=== PATIENT | male | born 1975 | race Caucasian/White ===

== ENCOUNTER 2022-02-28 18:20 | Day surgery (SDC) | payer MEDICAID, SELFPAY ==
--- NOTE | ~2022-02-28 | CT_ITS ---
EXAMINATION: CT ABDOMEN AND PELVIS WITH CONTRAST CLINICAL INFORMATION: Right lower quadrant pain. Concern for appendicitis COMPARISON: None TECHNIQUE: Multidetector volumetric images were obtained from the superior aspect of the liver through the pubic symphysis following administration 85 mL of Omnipaque 350 intravenous contrast. Sagittal and coronal reformatted images were obtained on the technologist's workstation. Oral contrast: No This CT examination was performed using dose optimization techniques as appropriate, variously including the following: *Automated exposure control *Adjustment of mA and/or kV according to patient size (this includes techniques or standardized protocols for targeted exams where dose is matched to indication/reason for exam; i.e. extremities or head) *Use of iterative reconstruction technique DLP: 597 mGy-cm FINDINGS: LUNG BASES: The visualized lung bases are unremarkable. LIVER, GALLBLADDER, AND BILIARY TREE: The liver is normal in size, shape, and attenuation. No focal hepatic lesion or biliary ductal dilatation is present. The gallbladder is unremarkable with no evidence of radiopaque gallstones, gallbladder wall thickening, or obvious pericholecystic inflammatory changes. PANCREAS: Unremarkable. SPLEEN: Unremarkable. ADRENAL GLANDS: Unremarkable. KIDNEYS AND URETERS: Symmetric nephrograms. No renal calculi or hydronephrosis. Couple small subcentimeter hypodense left renal lesions, likely tiny cysts, too small to characterize. No perinephric collection or stranding. BLADDER: Unremarkable. GASTROINTESTINAL TRACT: The appendix is dilated measuring up to 0.8 cm in maximal diameter with surrounding inflammatory fat stranding. Adjacent small 0.7 cm short axis dimension reactive lymph node on series 3-53. Appearance is consistent with acute appendicitis. No extraluminal gas or periappendiceal abscess. No additional bowel wall thickening. No dilated bowel loops. No ascites or free air. ABDOMINAL WALL: No significant hernia is appreciated. LYMPH NODES: No lymphadenopathy. VASCULAR: Normal caliber abdominal aorta. PELVIC VISCERA: Unremarkable. OSSEOUS STRUCTURES: Unremarkable. CT/CT abdomen pelvis w IV con IMPRESSION: 1. Findings consistent with acute appendicitis. No evidence of perforation or abscess. This critical result was discussed with NICOLÁS Sampson at 7:45 PM on 02/28/2022 and it was ascertained that the content and urgency of the report was understood at the time of direct communication.
[2022-02-28 14:49] VITALS: BP 110/66; PULSE 76; RESP 18; TEMP 36.5; O2SAT 97; BMI 30.8
[2022-02-28 15:00] LABS: MANUAL DIFF FLAG NO
[2022-02-28 15:03] LABS: Basophils Percent Auto 0.2 % (0-2); Hematocrit 43.4 % (42.0-52.0); Hemoglobin 15.1 g/dl (14.0-18.0); Imm Gran Abs Auto 0.11 X10*3/uL (0.00-0.03); Imm Gran Pct Auto 0.5 % (0.0-0.4); Lymphocytes Absolute Auto 1.4 X10*3/uL (1.2-4.9); Lymphocytes Percent Auto 6.2 % (20-40); Mean Corpuscular HGB Conc 34.8 g/dl (31.0-36.0); Mean Corpuscular Hemoglobin 28.9 pg (27.0-33.0); Mean Platelet Volume 10.3 fL (9.4-12.4); Monocytes Percent Auto 4.6 % (2-11); Neutrophils Absolute Auto 19.5 x10*3/uL (2.0-8.3); Neutrophils Percent Auto 88.5 % (45-73); Platelet Count 327 X10*3/uL (160-400); Red Blood Count 5.23 X10*6/uL (4.60-5.80); Red Cell Distribution Width 13.1 % (11.0-16.0)
[2022-02-28 15:24] LABS: Alanine Aminotransferase 26 U/L (0-40); Albumin Level 4.2 g/dL (3.5-5.0); Alkaline Phosphatase 85 U/L (39-117); Anion Gap 14 (12-20); Aspartate Amino Transferase 24 U/L (5-37); Bilirubin Direct 0.4 mg/dL (0.0-0.5); Blood Urea Nitrogen 12 mg/dL (9-16); Calcium 9.3 mg/dL (8.4-10.2); Carbon Dioxide 25 mmol/L (22-29); Chloride 102 mmol/L (96-108); Creatinine Clr Calc Pharmacy 110.4; Estimated Glomerular Filt Rate > 60; Glucose Random 122 mg/dL (60-115); Potassium 4.1 mmol/L (3.3-5.1); Sodium 137 mmol/L (135-145); Total Protein 7.2 g/dL (6.5-8.0)
--- NOTE | 2022-02-28 18:18 | ED.GENADULT ---
HPI - General Adult General Chief complaint: Abdominal Pain Stated complaint: lower R side abd pain Time Seen by Provider: 02/28/22 18:17 Source: patient Mode of arrival: ambulatory Limitations: no limitations History of Present Illness HPI narrative: Patient is a 46 year old male presenting to the emergency department today with right sided abdominal pain. Patient states that he woke up at 0300 this morning with severe right sided abdominal pain. Patient states that he has had kidney stones before but this is much worse. Patient states that the last time he ate was at 0800 today. Patient denies any dizziness, lightheadedness, nausea, vomiting, fever, chills, blurry vision, double vision, loss of vision, chest pain, difficulty breathing, shortness of breath, back pain, night sweats, pain with urination, increased urinary frequency, increased urinary urgency, blood in his urine or stool, syncope or a near syncopal episode, recent trauma or falls, bowel incontinence, bladder incontinence, bowel retention, bladder retention, or any other complaints at this time. Onset (ago): hour(s) Location: abdomen Radiation: non-radiation Severity: moderate Severity scale (1-10): 7 Quality: sharp and constant Pain Consistency: constant Relieving factors: none Exacerbating factors: none Associated symptoms: denies other symptoms Treatments prior to arrival: none Related Data Allergies Allergy/AdvReac Type Severity Reaction Status Date / Time No Known Allergies Allergy Verified 02/28/22 14:49 Review of Systems Constitutional: Constitutional: Reports no additional constitutional complaints, Denies chills, Denies fever(s) and Denies night sweats Eyes: Eyes: Reports no additional eye complaints, Denies blurry vision, Denies change in vision, Denies diplopia, Denies eye discharge, Denies loss of vision and Denies eye pain ENT: Denies dizziness Cardiovascular: Cardiovascular: Reports no additional cardiovascular complaints, Denies chest pain, Denies lightheadedness, Denies Loss of Consciousness and Denies dyspnea Respiratory: Respiratory: Reports no additional respiratory complaints and Denies dyspnea Gastrointestinal: Gastrointestinal: Reports no additional gastrointestinal complaints, Reports abdominal pain, Denies melena, Denies hematochezia, Denies change in bowel habits and Denies change in stool character Genitourinary: Genitourinary: Reports no additional male genitourinary complaints, Denies hematuria, Denies oliguria, Denies difficulty urinating, Denies dysuria, Denies urinary frequency, Denies urinary hesitancy, Denies urinary incontinence and Denies urinary urgency Musculoskeletal: Musculoskeletal: Reports no additional musculoskeletal complaints, Denies numbness and Denies tingling Neurologic: Denies dizziness, Denies loss of vision, Denies numbness and Denies tingling Psychiatric: Psychiatric: Reports no additional psychiatric complaints Endocrine: Endocrine: Reports no additional endocrine complaints Hematologic/Lymphatic: Hematologic/Lymphatic: Reports no additional hematologic/lymphatic complaints Allergic/Immunologic: Allergic/Immunologic: Reports no additional allergic/immunologic complaints [facility] Past Medical History Attestation statement: The following information was validated with the patient. Source: old records reviewed Social History Social History Advance Directives: No Advance Directives Information Provided: No Physical Exam ED Vital Signs: Vital Signs - 24 hr 02/28/22 14:49 Temperature 97.7 F Pulse Rate 76 Respiratory Rate 18 Blood Pressure 110/66 Pulse Oximetry 97 Oxygen Delivery Method Room Air BMI result Body Mass Index 30.8 Const General: cooperative, no acute distress, alert and awake Nutritional Appearance: well nourished Orientation/consciousness: patient oriented x3 Limitations: no limitations HENMT Head: Yes normal to inspection and Yes atraumatic Ears: hearing grossly normal bilaterally and external ears normal General nose exam: Normal external nose present, no nasal discharge noted and no epistaxis Face and sinus: Yes normal facial exam, No abrasion and No laceration Mouth: Normal oral and palatal mucosa present, no drooling and no muffled voice Eyes General: appearance normal, both eyes and all related structures Periorbital: periorbital findings normal Eyelids: Yes eyelids normal Conjunctivae: conjunctivae normal Pupils: Equal, round and reactive pupils present EOM: EOMs intact bilaterally Neck Neck: Yes normal visual inspection, Yes full ROM and Yes no lymphadenopathy Chest Chest palpation & inspection: normal inspection of the chest Resp Effort & Inspection: normal respiratory effort and able to speak in complete sentences Auscultation: clear to auscultation bilaterally Cardio Rate: regular rate Rhythm: regular rhythm GI Inspection: Yes normal to inspection Palpation (GI): Soft to palpation, not firm, Tenderness to palpation present (GI) in the RLQ, no guarding and not rigid Neuro General: patient oriented x3 and moves all extremities Cranial nerves: Yes Equal, round and reactive pupils present Cognition (Neuro): normal cognition Motor exam (neuro): 5/5 motor strength present throughout Sensory Exam: Normal double simultaneous stimulation for sensation Coordination: [id number] test normal Extrem General: Yes normal to inspection, Yes full ROM and Yes capillary refill normal Psych Appearance: grossly normal Mental Status: mental status grossly normal Affect: normal affect Attitude: cooperative Thought process: Normal thought process present Thought content: Normal thought content present Insight: Good insight present (Psych) Medical Decision Making MDM Narrative Medical decision making narrative: Patient is a 46 year old male presenting to the emergency department today with right lower quadrant abdominal pain. Patient's physical exam showed significant tenderness to palpation of the right lower quadrant but was otherwise unremarkable. Patient's blood work showed an elevated white blood cell count of 22. Patient's urine showed no acute process. Patient's abdominal CT showed an acute appendicitis. I explained my physical exam findings as well as all test results to the patient. I answered all questions asked by the patient. I called and spoke to Dr. Young, the general surgeon service liaison representative, who agreed to admission of this patient. Patient verbalized agreement and understanding with this treatment plan and admission. Differential Diagnosis Differential Diagnosis: acute appendicitis Medical Records Medical records reviewed: Yes I reviewed the patient's medical records. Lab Data Lab results reviewed: Yes I reviewed the patient's lab results. Result diagrams: 02/28/22 14:55 02/28/22 14:55 Labs: Lab Results 02/28/22 02/28/22 02/28/22 Range/Units 14:55 14:55 18:17 WBC 22.0 H (4.8-10.8) X10*3/uL RBC 5.23 (4.60-5.80) X10*6/uL Hgb 15.1 (14.0-18.0) g/dl Hct 43.4 (42.0-52.0) % MCV 83.0 (80.0-98.0) fL MCH 28.9 (27.0-33.0) pg MCHC 34.8 (31.0-36.0) g/dl RDW 13.1 (11.0-16.0) % Plt Count 327 (160-400) X10*3/uL MPV 10.3 (9.4-12.4) fL Immature Gran % (Auto) 0.5 H (0.0-0.4) % Neut % (Auto) 88.5 H (45-73) % Lymph % (Auto) 6.2 L (20-40) % [place] % (Auto) 4.6 (2-11) % Eos % (Auto) 0.0 (0-4) % Baso % (Auto) 0.2 (0-2) % Lymph # (Auto) 1.4 (1.2-4.9) X10*3/uL [place] # (Auto) 1.0 (0.1-1.2) X10*3/uL Eos # (Auto) 0.0 (0.0-0.4) X10*3/uL Baso # (Auto) 0.0 (0.0-0.2) X10*3/uL Abs Immat Gran (auto) 0.11 H (0.00-0.03) X10*3/uL Absolute Neuts (auto) 19.5 H (2.0-8.3) x10*3/uL Absolute Nucleated RBC 0.000 (0.0-0.012) X10*3/uL Nucleated RBC % (auto) 0.0 (0.0-0.2) /100WBC Sodium 137 (135-145) mmol/L Potassium 4.1 (3.3-5.1) mmol/L Chloride 102 (96-108) mmol/L Carbon Dioxide 25 (22-29) mmol/L Anion Gap 14 (12-20) BUN 12 (9-16) mg/dL Creatinine 1.00 (0.5-1.4) mg/dL Estim Creat Clear Calc 110.4 Estimated GFR > 60 Random Glucose 122 H (60-115) mg/dL Calcium 9.3 (8.4-10.2) mg/dL Total Bilirubin 1.0 (0.0-1.0) mg/dL Direct Bilirubin 0.4 (0.0-0.5) mg/dL AST 24 (5-37) U/L ALT 26 (0-40) U/L Alkaline Phosphatase 85 (39-117) U/L Total Protein 7.2 (6.5-8.0) g/dL Albumin 4.2 (3.5-5.0) g/dL Urine Color Yellow Urine Appearance Clear Urine pH 6.0 (5.0-9.0) Ur Specific [place] 1.010 (1.005-1.025) Urine Protein Negative (Neg-Trace) mg/dL Urine Glucose (UA) Negative (Negative) mg/dL Urine Ketones Negative (Negative) mg/dL Urine Blood Trace H (Negative) Urine Nitrite Negative (Negative) Ur Leukocyte Esterase Negative (Negative) Urine RBC 3-5 H (0-2) /HPF Urine WBC 0-5 (0-5) /HPF Ur Squamous Epith Cells 0-2 (0-2) /HPF Urine Bacteria None Seen (None Seen) Hyaline Casts 0-2 (0-2) /LPF Imaging Data CT scan - abdomen: Attestation: I personally reviewed and interpreted this imaging study as follows: My impression: Acute appendicits. Radiologist's impression: EXAMINATION: CT ABDOMEN AND PELVIS WITH CONTRAST? CLINICAL INFORMATION: Right lower quadrant pain. Concern for appendicitis? COMPARISON: None? TECHNIQUE: Multidetector volumetric images were obtained from the superior aspect of the liver through the pubic symphysis following administration 85 mL of Omnipaque 350 intravenous contrast. Sagittal and coronal reformatted images were obtained on the technologist's workstation.? Oral contrast: No This CT examination was performed using dose optimization techniques as appropriate, variously including the following: *Automated exposure control *Adjustment of mA and/or kV according to patient size (this includes techniques or standardized protocols for targeted exams where dose is matched to indication/reason for exam; i.e. extremities or head) *Use of iterative reconstruction technique DLP: 597 mGy-cm FINDINGS: LUNG BASES: The visualized lung bases are unremarkable.? LIVER, GALLBLADDER, AND BILIARY TREE: The liver is normal in size, shape, and attenuation. No focal hepatic lesion or biliary ductal dilatation is present. The gallbladder is unremarkable with no evidence of radiopaque gallstones, gallbladder wall thickening, or obvious pericholecystic inflammatory changes.? PANCREAS: Unremarkable.? SPLEEN: Unremarkable.? ADRENAL GLANDS: Unremarkable.? KIDNEYS AND URETERS: Symmetric nephrograms. No renal calculi or hydronephrosis. Couple small subcentimeter hypodense left renal lesions, likely tiny cysts, too small to characterize. No perinephric collection or stranding.? BLADDER: Unremarkable.? GASTROINTESTINAL TRACT: The appendix is dilated measuring up to 0.8 cm in maximal diameter with surrounding inflammatory fat stranding. Adjacent small 0.7 cm short axis dimension reactive lymph node on series 3-53. Appearance is consistent with acute appendicitis. No extraluminal gas or periappendiceal abscess. No additional bowel wall thickening. No dilated bowel loops. No ascites or free air.? ABDOMINAL WALL: No significant hernia is appreciated.? LYMPH NODES: No lymphadenopathy. VASCULAR: Normal caliber abdominal aorta. PELVIC VISCERA: Unremarkable.? OSSEOUS STRUCTURES: Unremarkable.? CT/CT abdomen pelvis w IV con IMPRESSION: ? 1. Findings consistent with acute appendicitis. No evidence of perforation or abscess. ? This critical result was discussed with NICOLÁS Sampson at 7:45 PM on 02/28/2022 and it was ascertained that the content and urgency of the report was understood at the time of direct communication. Dictated By: Nael Murphy Signed By: Electronically signed by Nael Murphy 02/28/221946 Discharge Plan Discharge Clinical Impression: Acute appendicitis Patient Disposition: Admitted As Inpatient Print Language: Macedonian
[2022-02-28] MEDS: iohexoL 350 MG/ML 100 ML INFUS..BTL IV (18:36)
[2022-02-28 18:44] LABS: Appearance Urine Clear; Color Urine Yellow; Glucose Urine UA Negative (Negative); Leukocyte Esterase Urine Negative (Negative); Nitrite Urine Negative (Negative); Urine Blood Trace (Negative); Urine Ketones Negative (Negative); Urine Protein Negative (Neg-Trace)
[2022-02-28 18:46] LABS: Bacteria Urine None Seen (None Seen); Hyaline Casts Urine 0-2 /LPF (0-2); Squamous Epithelial Cell Urine 0-2 /HPF (0-2); WBC Urine 0-5 /HPF (0-5)
--- NOTE | 2022-02-28 19:56 | P.HPGS_ITS ---
History of Present Illness History of Present Illness Date of Service: 03/01/22 Chief complaint: acute appendicitis Narrative: Brad Lino is a 46 year old male presenting with RLQ pain, leukocytosis & CT confirmed appendicitis. The patient had gradual onset of pain that localized to his right lower quadrant with some radiation to his back. Is feeling a little better today but after discussion of the pros and cons of non operative management with antibiotics verses operative resection, the patient would like to proceed with appendectomy. He denies any prior episodes of abdominal pain, diarrhea or symptoms suggestive of inflammatory bowel disease. He further denies any personal or family history of GI malignancy. Review of Systems Review of Systems: Yes all other systems are reviewed and are negative Constitutional: Constitutional: Reports as per [facility] Social History Social History Household Members: Family and Children Housing: House Do you presently have visiting nurse or other home services: No Patient Tobacco Use Status: Former Tobacco user Quit Date: 20 years ago Tobacco use type: Cigarette Years Smoked: 3 Smoked in Last 30 Days: No Patient Interested in Nicotine Replacement: No Second Hand Smoke Exposure: No Use of substances other than those prescribed or required for medical reasons: No Currently Displaying Signs/Symptoms of Drug Intoxication Withdrawal: No Any prior treatment program specific to substance use: No Have you been hit, kicked, punched, or otherwise hurt by someone within the past year? If so, by whom?: No Do you feel safe in your current relationship?: Yes Is there a partner from a previous relationship who is making you feel unsafe now?: No Are you made to feel afraid or neglected: No Advance Directives: No Advance Directives Information Provided: No Advance Directives on File: No Do you have thoughts of harming others: None Do you have a plan to hurt others: No Plan Recently lost weight without trying: No Eating poorly because of decreased appetite: Yes Nutrition Risks: No Nutritional Risk Poor oral hygiene: No Meds Allergies Allergy/AdvReac Type Severity Reaction Status Date / Time No Known Allergies Allergy Verified 02/28/22 14:49 Active Medications: Current Medications Pharmacy Consult (Consult Rx Perform Med Rec) 1 each MISCELLANE ONCE PRN PRN Reason: Consult order Home Medications Medication Instructions Recorded Confirmed Last Taken Type No Known Home Meds 02/28/22 02/28/22 Unknown History Physical Exam Vital Signs: Vital Signs: Last Vital Signs Temp 97.7 F 02/28/22 14:49 Pulse 76 02/28/22 14:49 Resp 18 02/28/22 14:49 BP 110/66 02/28/22 14:49 Pulse Ox 97 02/28/22 14:49 O2 Del Method 02/28/22 14:49 BMI result Body Mass Index 30.8 NC/AT, PERRLA, EOMI Heart is regular, normal S1-S2 Lungs are clear and equal anteriorly Abdomen is overweight with right lower quadrant tenderness at McBurney's point. No overt hernias are appreciated Results Results Labs: Short CBC 02/28/22 Range/Units 14:55 WBC 22.0 H (4.8-10.8) X10*3/uL Hgb 15.1 (14.0-18.0) g/dl Hct 43.4 (42.0-52.0) % Plt Count 327 (160-400) X10*3/uL BMP 02/28/22 14:55 Sodium 137 Potassium 4.1 Chloride 102 Carbon Dioxide 25 BUN 12 Creatinine 1.00 Calcium 9.3 Liver Function 02/28/22 Range/Units 14:55 Total Bilirubin 1.0 (0.0-1.0) mg/dL Direct Bilirubin 0.4 (0.0-0.5) mg/dL AST 24 (5-37) U/L ALT 26 (0-40) U/L Alkaline Phosphatase 85 (39-117) U/L Albumin 4.2 (3.5-5.0) g/dL Urine 02/28/22 Range/Units 18:17 Urine Color Yellow Urine Appearance Clear Urine pH 6.0 (5.0-9.0) Ur Specific [place] 1.010 (1.005-1.025) Urine Protein Negative (Neg-Trace) mg/dL Urine Glucose (UA) Negative (Negative) mg/dL Abdomen CT scan report/results: report reviewed and image reviewed CT scan - pelvis: report reviewed and image reviewed Assessment and Plan (1) Acute appendicitis: Status: Acute Plan NPO, IVF, Zosyn Start SQ heparin & SCDs For OR in a.m. I recommend appendectomy in reviewed the other option of non operative management with antibiotics. The inherent risks to both options were discussed. Activity restrictions postoperatively were also discussed with the patient. The patient seemed understand his options and agreed that appendectomy would be in his best interest. I reviewed the inherent risks of bleeding, infection, need for another procedure in the event of an unexpected complication or pathology, possible of negative exploration, he seemed to understand his options and wanted to proceed. For OR when the team is assembled. Quality Stroke Does the patient have a stroke diagnosis?: No VTE Prior VTE?: No VTE Risk Level:: Surgical - moderate VTE Device Contraindication: N/A - Device Ordered VTE Drug Contraindication: N/A - Med Ordered Procedures Date of Service Date of Service: 03/01/22
[2022-02-28] MEDS: ondansetron HCL 4 MG/2 ML VIAL IVPUSH (20:06)
[2022-02-28] MEDS: Morphine Sulfate 4 MG/ML CARTRIDGE IVPUSH (20:06)
--- NOTE | 2022-02-28 20:39 | PC.NURSE ---
PA at bedside to re-evaluate pt. Aware of plan of care for surgery. Medicated for pain per MAR with some relief. Pt remains NPO since 8pm last night. Car keys, 2 gold rings and an earring given to son in [place]. Resting comfortably on stretcher
[2022-02-28 20:44] VITALS: BP 140/74; PULSE 71; RESP 18; TEMP 36.9; O2SAT 98
[2022-02-28] MEDS: HYDROmorphone HCl 0.5 MG/0.5 ML SYRINGE IVPUSH (21:16)
[2022-02-28] MEDS: Piperacillin Sodium/Tazobactam 3.375 GM in 0.9 % Sodium Chloride 50 ML IV (21:16)
[2022-02-28] MEDS: Sodium Chloride 0.45 % 1,000 ML 100 ML IVCONT (21:17)
[2022-02-28 21:53] LABS: COVID-19 Test Negative (Negative)
[2022-03-01] VITALS (8 sets, daily range): BP systolic 106–132; BP diastolic 63–85; PULSE 59–78; RESP 14–16; TEMP 36.5–36.7; O2SAT 96–100
[2022-03-01] MEDS: HYDROmorphone HCl 1 MG/ML SYRINGE 0.5 MG IVPUSH (02:58)
[2022-03-01] MEDS: Piperacillin Sodium/Tazobactam 3.375 GM in 0.9 % Sodium Chloride 50 ML IV (03:37)
[2022-03-01] MEDS: Sodium Chloride 0.45 % 1,000 ML 100 ML IVCONT (06:30)
--- NOTE | 2022-03-01 07:50 | W.PM.OPN ---
Operative Note Operative Note Date of Service: 03/01/22 Narrative: Preop diagnosis: [acute appendicitis] Postop diagnosis: [Same and incomplete colonic rotation] Procedure: [Laparoscopic appendectomy with lysis of adhesions] Surgeon: Mark Young MD Assist: [none] Anesthesia: [GET; local 0.5% Ropivicaine] Estimated blood loss: [5cc] Specimen: [1) peritoneal fluid for Gram stain & culture 2) appendix] Intraoperative findings: [Patient clearly had appendicitis and a possible serosal perforation with turbid fluid; the patient has incomplete rotation of his colon and had a remnant band pulling his cecum almost into his right upper quadrant which was lysed and the colon mobilized to normal anatomic position] Indications: [The patient is a 46-year-old gentleman who denies significant past medical history presented with gradual onset of abdominal pain localizing to the right lower quadrant with a leukocytosis to 22K and his CT confirming acute appendicitis. The options of non operative management versus operative management were discussed with the patient and apparently understood. The inherent risks of bleeding, infection, negative exploration, need for open surgery, need for another procedure in the event of unexpected pathology or complication was discussed with the patient apparently understood. Post-op activity restrictions were also reviewed and apparently understood. The patient seemed understand all of his options, had his questions answered and wanted to proceed.] Procedure: [The patient was identified in the preoperative holding area and again in the operating room. An appropriate time-out was performed. The patient had voided bladder configuration management consultant, received subcu heparin and antibiotics per protocol. Sequential compression stockings were placed. The patient was induced in general endotracheal anesthesia administered with excellent effect. The abdomen was widely prepped and draped in the usual manner for surgery. Preemptive local was used at all trocar insertion sites. The abdomen was accessed using a Veress needle. Stab incision was made, Veress needle inserted without incident, an appropriate drop test performed and a pneumoperitoneum of 15 mmHg was obtained using carbon dioxide. Next, the abdomen was accessed with a 30 degree/5 mm laparoscoped over Optiview trocar technique without incident. In examining the Veress needle, no evidence of injury was present. The remaining trocars were placed under direct laparoscopic vision with preemptive analgesia. The patient was then positioned in Trendelenburg, banked left. The appendix was identified and partially retroperitoneal at the base into the cecum and a vestigial band of adhesive tissue from the right peritoneal pulled the cecum and ascending colon up towards the liver. It tracked down to the base on the cecum. A window was made in the mesoappendix and the mesoappendix carefully dissected using the 5 mm LigaSure [place] tip. An Endo-FERNANDA stapler, purple load, was placed across the appendiceal base on the cecum the and fired with good hemostasis and closure. There was some minimal ooze that required 5 mm clips across the staple line. The specimen was placed in an Endo-Catch bag and delivered through the 12 mm port in the left lower quadrant. Next, a lysis of adhesions of the the stage ill band and mobilization of the cecum and right colon was performed to drop the cecum towards the right lower quadrant. The ileal veil and terminal ileum were clearly identified and preserved. Operative field was irrigated and inspected for hemostasis which was good. Patient was returned to neutral position, the abdomen deflated and the trocars removed. 12 mm fascia was closed with 0- Polysorb and skin closed with 4-0 Monocryl subcuticular sutures. The abdomen was washed and dried, Mastisol and Steri-Strips applied followed by Band-Aids. Patient tolerated the procedure well and was sent to the recovery in stable condition. All sponge instrument counts were correct. At the patient's request, I called his ex- Feli at [phone] to explain the operation and plan. Her questions seemed to be satisfactorily answered. If the patient is awake and tolerating clears, he can be discharged later today, if he is somnolent and unable to hydrate, we will re-evaluate discharge tomorrow.]
--- NOTE | 2022-03-01 09:02 | P.CONAN_ITS ---
[facility] Active Problems Active Problems: All Active Problems (Updated 02/28/22 @ 19:57 by Mark Young MD) Acute appendicitis (Acute) Family History Family history of problems with anesthesia: No Surgical History History of Problems with Anesthesia: No Social History Social History Household Members: Family and Children Housing: House Do you presently have visiting nurse or other home services: No Patient Tobacco Use Status: Former Tobacco user Quit Date: 20 years ago Tobacco use type: Cigarette Years Smoked: 3 Smoked in Last 30 Days: No Patient Interested in Nicotine Replacement: No Second Hand Smoke Exposure: No Use of substances other than those prescribed or required for medical reasons: No Currently Displaying Signs/Symptoms of Drug Intoxication Withdrawal: No Any prior treatment program specific to substance use: No Have you been hit, kicked, punched, or otherwise hurt by someone within the past year? If so, by whom?: No Do you feel safe in your current relationship?: Yes Is there a partner from a previous relationship who is making you feel unsafe now?: No Are you made to feel afraid or neglected: No Advance Directives: No Advance Directives Information Provided: No Advance Directives on File: No Do you have thoughts of harming others: None Do you have a plan to hurt others: No Plan Recently lost weight without trying: No Eating poorly because of decreased appetite: Yes Nutrition Risks: No Nutritional Risk Poor oral hygiene: No Meds Allergies Allergy/AdvReac Type Severity Reaction Status Date / Time No Known Allergies Allergy Verified 02/28/22 14:49 Active Medications: Current Medications Docusate Sodium (Docusate Sodium 100 Mg Capsule) 200 mg PO BID [facility] Last Admin: 02/28/22 21:18 Dose: Not Given Heparin Sodium (Porcine) (Heparin Sodium,Porcine 5,000 Unit/Ml Vial) 5,000 unit SUBCUT Q12H [facility] Last Admin: 02/28/22 21:18 Dose: Not Given Hydromorphone HCl (Hydromorphone Hcl 1 Mg/Ml Syringe) 0.5 mg IVPUSH Q4H PRN; Protocol PRN Reason: Pain, Severe (Pain Scale 7-10) Last Admin: 03/01/22 02:58 Dose: 0.5 mg Hydromorphone HCl (Hydromorphone Hcl 0.5 Mg/0.5 Ml Syringe) 0.5 mg IVPUSH ONCE TAYLOR; Protocol Last Admin: 02/28/22 21:16 Dose: 0.5 mg Sodium Chloride (Sodium Chloride 0.45 %) 1,000 mls @ 100 mls/hr IVCONT .Q10H T[facility] Last Admin: 03/01/22 06:30 Dose: 100 mls/hr Acetaminophen (Ofirmev) 1,000 mg in 100 mls @ 400 mls/hr IV Q6H T[facility] Stop: 03/01/22 15:14 Last Infusion: 03/01/22 03:46 Dose: Infused Piperacillin Sod/Tazobactam (Sod 3.375 gm/ Sodium Chloride) 50 mls @ 100 mls/hr IV Q6H [facility] Last Infusion: 03/01/22 04:22 Dose: Infused Pharmacy Consult (Consult Rx Perform Med Rec) 1 each MISCELLANE ONCE PRN PRN Reason: Consult order Sodium Chloride (0.9 % Sodium Chloride Flush 3 Ml Syringe) 3 ml IVFLUSH QSHIFT [facility] Last Admin: 03/01/22 07:17 Dose: Not Given Home Medications Medication Instructions Recorded Confirmed Last Taken Type No Known Home Meds 02/28/22 02/28/22 Unknown History Exam Exam Date and Time: March 01, 2022 0902 Height,Weight and Vital Signs: Height 5 ft 10 in Weight 97.522 kg Last Vital Signs Temp 97.9 F 03/01/22 03:17 Pulse 61 03/01/22 03:17 Resp 16 03/01/22 03:17 BP 106/63 03/01/22 03:17 Pulse Ox 97 03/01/22 03:17 O2 Del Method 03/01/22 03:17 Pertinent Lab Results Pertinent Lab Results: Laboratory Tests 02/28/22 02/28/22 02/28/22 14:55 14:55 18:17 WBC 22.0 H RBC 5.23 Hgb 15.1 Hct 43.4 MCV 83.0 MCH 28.9 MCHC 34.8 RDW 13.1 Plt Count 327 MPV 10.3 Immature Gran % (Auto) 0.5 H Neut % (Auto) 88.5 H Lymph % (Auto) 6.2 L [place] % (Auto) 4.6 Eos % (Auto) 0.0 Baso % (Auto) 0.2 Lymph # (Auto) 1.4 [place] # (Auto) 1.0 Eos # (Auto) 0.0 Baso # (Auto) 0.0 Abs Immat Gran (auto) 0.11 H Absolute Neuts (auto) 19.5 H Absolute Nucleated RBC 0.000 Nucleated RBC % (auto) 0.0 Sodium 137 Potassium 4.1 Chloride 102 Carbon Dioxide 25 Anion Gap 14 BUN 12 Creatinine 1.00 Estim Creat Clear Calc 110.4 Estimated GFR > 60 Random Glucose 122 H Calcium 9.3 Total Bilirubin 1.0 Direct Bilirubin 0.4 AST 24 ALT 26 Alkaline Phosphatase 85 Total Protein 7.2 Albumin 4.2 Urine Color Yellow Urine Appearance Clear Urine pH 6.0 Ur Specific [place] 1.010 Urine Protein Negative Urine Glucose (UA) Negative Urine Ketones Negative Urine Blood Trace H Urine Nitrite Negative Ur Leukocyte Esterase Negative Urine RBC 3-5 H Urine WBC 0-5 Ur Squamous Epith Cells 0-2 Urine Bacteria None Seen Hyaline Casts 0-2 COVID-19 ([facility]) COVID-19 Clin Com 02/28/22 21:15 WBC RBC Hgb Hct MCV MCH MCHC RDW Plt Count MPV Immature Gran % (Auto) Neut % (Auto) Lymph % (Auto) [place] % (Auto) Eos % (Auto) Baso % (Auto) Lymph # (Auto) [place] # (Auto) Eos # (Auto) Baso # (Auto) Abs Immat Gran (auto) Absolute Neuts (auto) Absolute Nucleated RBC Nucleated RBC % (auto) Sodium Potassium Chloride Carbon Dioxide Anion Gap BUN Creatinine Estim Creat Clear Calc Estimated GFR Random Glucose Calcium Total Bilirubin Direct Bilirubin AST ALT Alkaline Phosphatase Total Protein Albumin Urine Color Urine Appearance Urine pH Ur Specific [place] Urine Protein Urine Glucose (UA) Urine Ketones Urine Blood Urine Nitrite Ur Leukocyte Esterase Urine RBC Urine WBC Ur Squamous Epith Cells Urine Bacteria Hyaline Casts COVID-19 ([facility]) Negative COVID-19 Clin Com See Note Airway Mallampati Class: III TM Dist: >3cm Neck ROM: Full Assessment and Plan Assessment Anesthesia Assessment: Anesthesia Plan Discussed and Chart Reviewed Final Anesthetic Review Family History of Problems with Anesthesia: No History of Problems with Anesthesia: No NPO: Yes ASA Class: II and Emergency Final Preanesthetic Review: No Changes in Pt Med Stat, Meds/Allgs Chart Reviewed, Consent Obtained/Reviewed and Anes Risks/Benef Reviewed Patient Risk: Intermediate Procedure Risk: Intermediate Anesthetic Plan Anesthetic Plan: GA Disposition: Standard PACU
--- NOTE | 2022-03-01 15:59 | PM.DS ---
DS: Providers Provider Date of Service: 03/01/22 Date of admission: 02/28/22 20:07 Primary care physician: Unknown Physician Consults: 02/28/22 19:47 Consult to General Surgery Stat Consulting Provider: Mark Young Reason for consultation: appy DS: Diagnosis Discharge Diagnosis (1) Acute appendicitis: Status: Acute DS: Summary Hospital Course Hospital Course: 46y male denies PMH presented with Abd pain, leukocytosis & appendicitis on CT. At laparoscopy, acute appendicitis & incomplete colonic rotation were noted. Appendectomy & DOROTHY performed without incidence. Post-op, the pt reported minimal pain, tolerated PO & was discharged in improved condition. Time Spent with Patient Time attestation: Total time spent providing and/or coordinating discharge services: Discharge coordination time: Less than 30 minutes Quality: Safe Use of Opioids Does Pt have an Active Cancer Diagnosis on the Problem List?: No Quality: Stroke Does the patient have a stroke diagnosis?: No Physical Exam Vital Signs: Vital Signs: Last Vital Signs Temp 98.0 F 03/01/22 12:00 Pulse 67 03/01/22 12:00 Resp 14 03/01/22 12:00 BP 121/75 03/01/22 12:00 Pulse Ox 98 03/01/22 12:00 O2 Del Method 03/01/22 12:00 O2 Flow Rate 2 03/01/22 10:32 BMI result Body Mass Index 30.8 DS: Data Data Completed and Pending Pending studies at discharge: Pending at discharge 03/01/22 10:12 Surgical [PTH] Routine Labs on day of discharge: Laboratory Results - last 24 hr 02/28/22 02/28/22 18:17 21:15 Urine Color Yellow Urine Appearance Clear Urine pH 6.0 Ur Specific [place] 1.010 Urine Protein Negative Urine Glucose (UA) Negative Urine Ketones Negative Urine Blood Trace H Urine Nitrite Negative Ur Leukocyte Esterase Negative Urine RBC 3-5 H Urine WBC 0-5 Ur Squamous Epith Cells 0-2 Urine Bacteria None Seen Hyaline Casts 0-2 COVID-19 ([facility]) Negative COVID-19 Clin Com See Note Discharge Plan Discharge Patient Disposition: Home, Self-Care Referrals: Physician,Unknown J [Primary Care Provider] - 1 Week Discharge Medications: No Action No Known Home Meds Discharge Orders: Discharge Order (Routine); Ordered 03/01/22 Ordered By: Mark Young Diet: Regular diet Activity on Discharge: No heavy lifting Stand Alone Forms: Patient Portal Discharge page Print Language: [place] Activity Restrictions/Additional Instructions: You had a laparoscopic appendectomy performed by Dr. Young. It is normal to feel some minor abdominal discomfort due to the gas from the operation, however if you develop severe pain in your abdomen or chest, fevers over 100F, vomiting and are unable to keep liquids down, you should contact Dr. Young or report to the nearest emergency department. If your incisions become red, swollen and tender, draining pus or have problems, please contact Dr. Young report to the nearest emergency department. If you have bandages on your incisions, leave them in place for 48 hours, then remove them. You can shower but not soak in a tub after removing the bandages. If there are paper tapes known as butterflies/Steri-Strips, leave them fall off on their own in 1-2 weeks. You do not need to put another bandage on your incisions and lesser clothing rubs or irritates your incisions. You can shower after you removed your bandages in 48 hours, but do not soak in a tub, go in a pool, or go swimming in a [place] pond or ocean. Please let the paper tapes to dry after getting them wet. You do not need to replace a bandage on lesser clothing irritates the incision. You may find that pants with an elastic waist or suspenders are more comfortable than pants requiring a belt until your incisions completely heal. Because of the operation, you should not lift more than 20 lb for the next 4 weeks. Any strenuous activity such as lifting more than 20 lb, digging, yoga, any athletic activity, like running, soccer, or other strenuous activity, lifting heavy bags/groceries, swimming, martial arts, or other strenuous athletic activities can cause hernias. If you have any questions regarding a specific activity, please ask Dr. Young. Avoiding strenuous activities will minimize the risk of incisional hernias. After a week, at your follow-up visit, Dr. Young will discuss returning to work on light duty with you. Since you can perform light duty, you are not disable, but your employer may not allow you to return until you have no restrictions; it is up to you to discuss this issue, as we cannot disclose personal information. Please bring any paperwork to that follow-up appointment from your employer. Please note that you are not disabled and need to discuss your work restrictions for medical reasons with your employer. If you were prescribed an antibiotic, continue taking the medication as prescribed. The anesthesia from the operation and pain medicine will cause constipation. You can purchase [id number] stool softener known as Colace/docusate, 100 mg and take 2 tablets in the morning with breakfast and 2 tablets in the evening after dinner to minimize this problem. Even if you are not taking narcotics, the anesthesia can cause constipation. You can take [id number] Tylenol/acetaminophen with [id number] naproxen or ibuprofen to help with pain. Ice packs are also allowed to minimize pain and swelling. You should eat a high-protein, high-fiber, low-fat diet to optimize healing. Please resume any preoperative medications unless otherwise directed by Dr. Young. Please contact your primary care provider for a follow-up appointment in 2 weeks. Care Plan Goals: Postoperative healing Health Concerns: Establish PCP Plan of Treatment: Routine surgical follow-up Assessment: Acute appendicitis, status post laparoscopic appendectomy on 03/01/2022
--- NOTE | 2022-03-01 16:25 | MHC.CM.PN ---
CM ATTEMPTED TO SEE PT WHO WAS OFF UNIT
== END 2022-03-01 17:15 | disposition home or self-care (01) ==
LOC: HO.ED 19:58 → HO.S3 03-01 02:33 → HO.SSS 03-03 12:18
PROVIDERS: Physician Assistant Medical; Surgery; Visit Provider Emergency Medicine
PROC: 0DTJ4ZZ Resection of Appendix, Percutaneous Endoscopic Approach (ICD-10-PCS; CPT 44970; principal; 2022-03-01 09:00)
DX: K35.890 Other acute appendicitis without perforation or gangrene (principal); K66.0 Peritoneal adhesions (postprocedural) (postinfection); Q43.3 Congenital malformations of intestinal fixation; Z20.822 Contact with and (suspected) exposure to COVID-19; Z87.891 Personal history of nicotine dependence; Z87.442 Personal history of urinary calculi
CPT/HCPCS: 44970; 36415; 74177; 80053; 81001; 82248; 85025; 87071; 87073; 87205; 87635; 88304; 96374; 96375; 99285; C9088; J0131; J1100; J1170; J1885; J2250; J2270; J2405; J2543; J2795; J3010; Q9967